=== PATIENT | female | born 1945 | race Caucasian/White ===

== ENCOUNTER 2017-01-19 16:25 | Observation (INO) ==
--- NOTE | 2017-01-19 17:06 | EKG Report ---
Stationary ECG Study [facility] ER Test Date: 01/19/2017 4:37:10 PM Pat Name: RUBNÉ HUGHES Department: Room: 286 Gender: F Supervisor Blood: : 1945 Requested by: Linden Philippe Order Number: [id number] Reading MD: QAMAR ANGEL Intervals [place] Rate: 62 P: 9 [place]: 175 QRS: -2 QRSD: 96 T: 67 QT: 413 QTc: 419 Interpretive Statements SINUS RHYTHM WITH OCCASIONAL SUPRAVENTRICULAR PREMATURE COMPLEXES SEPTAL INFARCT, AGE UNDETERMINED Electronically Signed On 01-21-17 08:51:24 CDT by QAMAR ANGEL [email or web address]
--- NOTE | 2017-01-19 17:11 | Emergency Department Note ---
Arrival - Arrival Chief Complaint: Arrhythmia/Palpitations Stated Complaint: CHEST PAINS/A-FIB ED Nursing Triage Note: Heart palpitations with SOB - pt states that she has a HX of A fib and states that she thinks that she has been in a fib today Mode of Arrival: Wheelchair Limitations: No Limitations Source: Patient Time Seen by Provider: 01/19/17 16:55 - History of Present Illness HPI Narrative: The patient complains of episodes of palpitations today consistent with her previous episodes of A. fib. This started around noon with intermittent episodes and then became more constant around 3:00. When she reached a heart rate of 90 (her maximum) she also started having some shortness of breath and later some very slight tightness in her chest. She also had a brief episode of mild nausea but no vomiting and no diaphoresis. At this point she is feeling no palpitations and feels back to normal. Date of Last Menstrual Period: hyster Allergies/Adverse Reactions: Allergies Allergy/AdvReac Type Severity Reaction Status Date / Time Cefaclor [From Ceclor] Allergy SHORTNESS Verified 01/19/17 16:27 OF BREATH Sulfa (Sulfonamide Allergy RASH Verified 01/19/17 16:27 Antibiotics) bupivacaine [From Marcaine] AdvReac Muscle Pain Verified 01/19/17 16:27 Home Medications: Home Medications Medication Instructions Recorded Confirmed Type Albuterol Sulfate [Proair 2 puff INH Q6H PRN 01/19/17 01/19/17 History Respiclick] Amiodarone Tab [Cordarone Tab] 200 mg PO DAILY 01/19/17 01/19/17 History Ascorbic Acid [Vitamin C] 1,000 mg PO BID 01/19/17 01/19/17 History Bacillus Coagulans [Probiotic] 1 each PO BEDTIME 01/19/17 01/19/17 History Calcium (Carb)/Vit D 600-400 1 tablet PO DAILY 01/19/17 01/19/17 History [Caltrate 600 + D] Cholecalciferol (Vitamin D3) 2,000 unit PO BID 01/19/17 01/19/17 History [Vitamin D3] Digoxin 250 mcg PO DAILY 01/19/17 01/19/17 History Diltiazem Cd Cap [Cardizem CD] 300 mg PO DAILY 01/19/17 01/19/17 History Docusate Sodium 100 mg PO BEDTIME 01/19/17 01/19/17 History Estradiol Tab [Estrace Tab] 1 mg PO DAILY 01/19/17 01/19/17 History Magnesium Chloride [Slow Mag] 64 mg PO DAILY 01/19/17 01/19/17 History Multivitamin (Centrum) [Centrum 1 tablet PO DAILY 01/19/17 01/19/17 History Tab] Rivaroxaban [Xarelto] 20 mg PO DAILY 01/19/17 01/19/17 History Selenium [Selenium Cap] 200 mcg PO DAILY 01/19/17 01/19/17 History Spironolactone [Aldactone] 25 mg PO DAILY 01/19/17 01/19/17 History Review of System - Review of System 12 point system: reviewed and no additional remarkable complaints except as stated - Review of System Constitutional: Present: weakness. Absent: diaphoresis, fever Eyes: Absent: vision change Head/Ears/Nose/Throat: Absent: nasal drainage Respiratory: Absent: cough, respiratory distress Cardiovascular: Present: chest pain ("Tightness"), palpitations. Absent: dyspnea on exertion, orthopnea, edema, syncope Gastrointestinal: Present: nausea. Absent: vomiting Medical,Surgical,& Family Hx - Medical History Cardio: History of: Hypertension, Cardiovascular Problems (A fib) - Surgical History Surgical History: noncontributory - Family History Family History: noncontributory - Social History Smoking Status: Never smoker Frequency of Alcohol Use: None Type of Drug Use: None Exam Physical Examination: GENERAL: Alert. No acute distress. HEENT: Normocephalic and atraumatic. There is no nasal drainage. No pharyngeal erythema or exudate. NECK: Normal inspection. Supple. No lymphadenopathy or meningismus. LUNGS: No respiratory distress. Clear to auscultation bilaterally, no wheezes, rales or rhonchi. HEART: Regular rate and rhythm. ABDOMEN: Soft, nontender and nondistended with normoactive bowel sounds. BACK: Normal inspection. SKIN: Color normal. Warm and dry. EXTREMITIES: Nontender. Normal range of motion. No pedal edema. NEUROLOGICAL/PSYCHIATRIC: Alert and oriented -3 with normal mood and affect. Cranial nerves normal. No motor or sensory deficit. Vital Signs: Vital Signs Temperature 97.1 F L 01/19/17 16:28 Pulse Rate 60 01/19/17 17:45 Respiratory Rate 16 01/19/17 17:45 Blood Pressure 155/77 01/19/17 17:45 O2 Sat by Pulse Oximetry 100 01/19/17 17:45 Course - Reevaluation(s) Reevaluation #1: The patient has been in sinus rhythm here and pretty much asymptomatic except for feeling weak. Given her symptoms of chest pain and shortness of breath with the episodes of A. fib she has had today, I think it best to put her in for observation and serial enzymes. I have discussed patient with Dr. Goetz and will admit to Dr. Roldan. Time: 17:58 Results - Labs CBC & BMP: 01/19/17 16:42 01/19/17 16:42 Lab Results: I have reviewed the patients labs Labs: Laboratory Tests 01/19/17 01/19/17 01/19/17 16:42 16:42 16:42 INR 1.0 Magnesium 2.2 Total Bilirubin 0.40 AST 20 ALT 31 Total Creatine Kinase 49 CK-MB (CK-2) < 1.0 Troponin I < 0.015 B-Natriuretic Peptide 48 - Impressions Chest x-ray shows: 1. Mild cardiomegaly 2. Mild hypoaeration changes superimposed on scarring in the left lung base EKG shows a sinus rhythm at 62 with a PAC. There are Q waves in V1 and V2. Disposition Clinical Impression: Palpitations, History of atrial fibrillation, Chest pain, Dyspnea Case discussed with: patient, patient's family Disposition: Still a Patient Condition: Stable Time of Disposition: 17:58
[2017-01-19 17:14] LABS: Basophils % 0.5 % (0.0-0.8); Eosinophils # 0.1 10*3/uL (0.0-0.87); Eosinophils % 1.4 % (0.00-10.9); Hematocrit 41.8 VOL% (35.7-47.0); Hemoglobin 14.1 GM/DL (12.0-16.0); Immature Granulocytes % 0.4 %; Immature Granulocytes Absolute 0.03 #; Lymphocytes # 2.1 10*3/uL (1.4-4.0); Lymphocytes % 28.1 % (21.3-54.2); Mean Corpuscular HGB Conc 33.7 GM/DL (32-36); Mean Corpuscular Hemoglobin 32 PG (27-34); Mean Corpuscular Volume 94.4 FL (87-102); Mean Platelet Volume 10.6 FL (9.6-12.0); Monocytes # 0.8 10*3/uL (0.11-0.8); Monocytes % 10.4 % (1.7-12.7); Neutrophils # 4.3 10*3/uL (1.4-7.4); Neutrophils % 59.2 % (38.7-73.9); Platelet Count 261 T/CUMM (130-400); Red Blood Count 4.43 MC/CUMM (3.8-5.5); Red Cell Distribution Width 12.4 % (9.3-17.3); White Blood Count 7.3 T/CUMM (4-12)
[2017-01-19 17:21] LABS: PT Patient Result 10.6 SECS; Partial Thromboplastin Time 29.2 SECS (0-40)
--- NOTE | 2017-01-19 17:38 | XRay Report ---
History is palpitations Comparison 05/03/2013 The heart is enlarged. Hilar contours are unchanged There are mild hypoaeration changes in the left lung base superimposed on previous scarring No consolidated infiltrate is seen. Impression: 1. Mild cardiomegaly 2. Mild hypoaeration changes superimposed on scarring in the left lung base PROCEDURE INTERPRETED AT [facility] DEPARTMENT OF RADIOLOGY Final Report Signed by: Dr. Arleth Torres
[2017-01-19 17:52] LABS: Alanine Aminotransferase 31 U/L (13-56); Albumin 3.9 G/DL (3.4-5.0); Alkaline Phosphatase 60 U/L (45-117); Aspartate Amino Transferase 20 U/L (0-37); Blood Urea Nitrogen 17 MG/DL (7-18); Calcium 8.9 MG/DL (8.5-10.1); Glucose 98 MG/DL (74-106); Magnesium 2.2 MG/DL (1.8-2.4); Osmolality,Calculated 284.1 MOS/KG (273-304); Potassium 4.2 MMOL/L (3.5-5.1); Sodium 142 MMOL/L (136-145); Total Protein 6.8 G/DL (6.4-8.3); Troponin I Only < 0.015 NG/ML (0.00-0.045)
[2017-01-19] MEDS ORDERED: ONDANSETRON 4 MG/2 ML VIAL IV PRN (19:26)
[2017-01-19] MEDS ORDERED: MORPHINE 2 MG/1 ML SYRINGE IV PRN (19:26)
[2017-01-19] MEDS ORDERED: MAGNESIUM SULF RIDER 4 GM in PREMIX 1 EACH IV PRN (19:26)
[2017-01-19] MEDS ORDERED: MAGNESIUM SULF RIDER 2 GM in PREMIX 1 EACH IV PRN (19:26)
[2017-01-19] MEDS ORDERED: ALBUTEROL 2.5 MG/3 ML NEB RESP TX PRN (19:26)
--- NOTE | 2017-01-20 06:53 | Cardiology History & Physical ---
Assessment and Plan (1) Paroxysmal atrial fibrillation with rapid ventricular response Status: Acute Assessment and plan: She has had a recurrent episode of atrial fib which is very rare for her. We will increase her amiodarone to 400 mg daily and have her see Dr. Roldan for follow-up. We will review a 2D echocardiogram to be certain there is been no change in her LV function. She has not had any symptoms of heart failure. Her electrolytes are within the range of normal and we will likely have her discharge later this afternoon to follow-up with Dr. Roldan Current Visit: Yes (2) Hypertension Status: Acute Current Visit: Yes (3) Chest pain Status: Acute Current Visit: Yes History of Present Illness History of present illness: Ms. Lowry is a 71 year old female who has a history of paroxysmal atrial fibrillation and hypertension. She sees Dr. Roldan it is been years since she has had atrial fibrillation. She noted onset of tachypalpitations yesterday and was on her way to the emergency room and coughed converted to sinus rhythm. She apparently was seen in [facility] in July with bronchitis and underwent stress testing at that time which apparently was negative. She has been stable since presenting here with negative isoenzymes and EKGs. She did note some chest heaviness and bilateral neck pain with her tachypalpitations. She has been on Xarelto for about a year. She denies any history of fever chills cough or sputum she has had no history of nausea vomiting diarrhea abdominal pain she has had no other real specific complaints. She now is in sinus rhythm. An echocardiogram is pending and she likely can be discharged later this afternoon. Home Medications Medication Instructions Recorded Confirmed Type Albuterol Sulfate [Proair 2 puff INH Q6H PRN 01/19/17 01/19/17 History Respiclick] Amiodarone Tab [Cordarone Tab] 200 mg PO DAILY 01/19/17 01/19/17 History Ascorbic Acid [Vitamin C] 1,000 mg PO BID 01/19/17 01/19/17 History Bacillus Coagulans [Probiotic] 1 each PO BEDTIME 01/19/17 01/19/17 History Calcium (Carb)/Vit D 600-400 1 tablet PO DAILY 01/19/17 01/19/17 History [Caltrate 600 + D] Cholecalciferol (Vitamin D3) 2,000 unit PO BID 01/19/17 01/19/17 History [Vitamin D3] Digoxin 250 mcg PO DAILY 01/19/17 01/19/17 History Diltiazem Cd Cap [Cardizem CD] 300 mg PO DAILY 01/19/17 01/19/17 History Docusate Sodium 100 mg PO BEDTIME 01/19/17 01/19/17 History Estradiol Tab [Estrace Tab] 1 mg PO DAILY 01/19/17 01/19/17 History Magnesium Chloride [Slow Mag] 64 mg PO DAILY 01/19/17 01/19/17 History Multivitamin (Centrum) [Centrum 1 tablet PO DAILY 01/19/17 01/19/17 History Tab] Rivaroxaban [Xarelto] 20 mg PO DAILY 01/19/17 01/19/17 History Selenium [Selenium Cap] 200 mcg PO DAILY 01/19/17 01/19/17 History Spironolactone [Aldactone] 25 mg PO DAILY 01/19/17 01/19/17 History Allergies Allergy/AdvReac Type Severity Reaction Status Date / Time Cefaclor [From Ceclor] Allergy SHORTNESS Verified 01/19/17 16:27 OF BREATH Sulfa (Sulfonamide Allergy RASH Verified 01/19/17 16:27 Antibiotics) bupivacaine [From Marcaine] AdvReac Muscle Pain Verified 01/19/17 16:27 Medical,Surgical,& Family Hx - Medical History Cardio: History of: Hypertension, Cardiovascular Problems (A fib) - Social History Smoking Status: Never smoker Frequency of Alcohol Use: None Type of Drug Use: None Cardiology Physical Exam - Constitutional Vitals: Vital Signs Temp Pulse Resp BP Pulse Ox 98.6 F 97 H 18 147/77 96 01/20/17 04:00 01/20/17 04:00 01/20/17 05:42 01/20/17 04:00 01/20/17 04:00 Intake and Output 01/19/17 01/19/17 01/20/17 15:59 23:59 07:59 Intake Total 500 / 500 Output Total 600 / 600 400 / 400 Balance -100 / -100 -400 / -400 Intake: Oral 500 / 500 Output: Urine 600 / 600 400 / 400 Other: Weight 100.868 kg 100.868 kg Patient Weight 01/20/17 23:59 Weight 100.868 kg Exam: Physical examination: General: The patient is awake and alert and oriented -3. Mood and affect are normal. HEENT: Normocephalic, sclera are clear there are no lid xanthelasmas noted. Oral mucosa is free of cyanosis or pallor. Neck: The neck is supple without JVD. Carotid upstrokes are normal volume and amplitude. There is no audible bruit. There is no palpable thyroid. Trachea is midline. Chest: Lungs: The patient is comfortable at rest without intercostal retractions or abdominal breathing. There are no adventitial sounds rales rubs rhonchi or wheezes noted. Cardiovascular: The PMI is nondisplaced. No palpable thrill S3 or S4. There is a regular rate and rhythm with no murmur rub or gallop noted. Dorsalis pedis posterior tibial and femoral pulses are 2+ and equal bilaterally. Abdomen: Abdomen is soft and nontender with normal active bowel sounds. There is no palpable mass or organomegaly noted. There is no midline bruit. Extremities exam: There is no cyanosis clubbing or edema. Skin: Skin is warm and dry without ecchymosis or urticaria or skin rash. There are no palpable nodules. Musculoskeletal: There is no kyphosis or scoliosis noted. Result/EKG - Labs CBC & BMP: 01/19/17 16:42 01/19/17 16:42 Labs: Laboratory Results - last 24 hr 01/19/17 01/19/17 01/19/17 16:42 16:42 16:42 WBC 7.3 RBC 4.43 Hgb 14.1 Hct 41.8 MCV 94.4 MCH 32 MCHC 33.7 RDW 12.4 Plt Count 261 MPV 10.6 Neut % (Auto) 59.2 Lymph % (Auto) 28.1 Harding % (Auto) 10.4 Eos % (Auto) 1.4 Baso % (Auto) 0.5 Neut # (Auto) 4.3 Lymph # (Auto) 2.1 [place]ing # (Auto) 0.8 Eos # (Auto) 0.1 Baso # (Auto) 0.0 Immature Gran % 0.4 Nucleated RBC % 0.0 Immature Gran # 0.03 Nucleated RBCs # 0.00 INR 1.0 PT Patient/Control Mix 10.6 Circ Anticoag PTT 29.2 Sodium 142 Potassium 4.2 Chloride 108 H Carbon Dioxide 25 Anion Gap 13.2 BUN 17 Creatinine 1.20 H GFR Calculation 56 BUN/Creatinine Ratio 14.00 Glucose 98 Calculated Osmolality 284.1 Calcium 8.9 Magnesium 2.2 Total Bilirubin 0.40 AST 20 ALT 31 Alkaline Phosphatase 60 Total Creatine Kinase 49 CK-MB (CK-2) < 1.0 Troponin I < 0.015 B-Natriuretic Peptide Total Protein 6.8 Albumin 3.9 Globulin 2.9 Albumin/Globulin Ratio 1.3 01/19/17 01/19/17 01/19/17 16:42 20:06 23:47 WBC RBC Hgb Hct MCV MCH MCHC RDW Plt Count MPV Neut % (Auto) Lymph % (Auto) [place] % (Auto) Eos % (Auto) Baso % (Auto) Neut # (Auto) Lymph # (Auto) [place] # (Auto) Eos # (Auto) Baso # (Auto) Immature Gran % Nucleated RBC % Immature Gran # Nucleated RBCs # INR PT Patient/Control Mix Circ Anticoag PTT Sodium Potassium Chloride Carbon Dioxide Anion Gap BUN Creatinine GFR Calculation BUN/Creatinine Ratio Glucose Calculated Osmolality Calcium Magnesium Total Bilirubin AST ALT Alkaline Phosphatase Total Creatine Kinase CK-MB (CK-2) Troponin I < 0.015 < 0.015 B-Natriuretic Peptide 48 Total Protein Albumin Globulin Albumin/Globulin Ratio 01/20/17 03:39 WBC RBC Hgb Hct MCV MCH MCHC RDW Plt Count MPV Neut % (Auto) Lymph % (Auto) [place] % (Auto) Eos % (Auto) Baso % (Auto) Neut # (Auto) Lymph # (Auto) [place] # (Auto) Eos # (Auto) Baso # (Auto) Immature Gran % Nucleated RBC % Immature Gran # Nucleated RBCs # INR PT Patient/Control Mix Circ Anticoag PTT Sodium Potassium Chloride Carbon Dioxide Anion Gap BUN Creatinine GFR Calculation BUN/Creatinine Ratio Glucose Calculated Osmolality Calcium Magnesium Total Bilirubin AST ALT Alkaline Phosphatase Total Creatine Kinase CK-MB (CK-2) Troponin I < 0.015 B-Natriuretic Peptide Total Protein Albumin Globulin Albumin/Globulin Ratio - EKG EKG results: interpreted by me (Sinus rhythm with nonspecific ST-T abnormalities )
--- NOTE | 2017-01-20 07:45 | EKG Report ---
Stationary ECG Study [facility] Test Date: 01/20/2017 7:45:51 AM Pat Name: RUBÉN HUGHES Department: Room: 286 Gender: F Credentials Specialist: : 1945 Requested by: Linden Philippe Order Number: [id number] Reading MD: QAMAR ANGEL Intervals [place] Rate: 58 P: 54 [place]: 201 QRS: -6 QRSD: 100 T: 66 QT: 436 QTc: 432 Interpretive Statements SINUS RHYTHM NONSPECIFIC T-WAVE ABNORMALITY Electronically Signed On 01-21-17 10:34:34 CDT by QAMAR ANGEL [email or web address]
[2017-01-20] MEDS ORDERED: RIVAROXABAN 20 MG TABLET PO SCH (09:00)
[2017-01-20] MEDS ORDERED: AMIODARONE 200 MG TABLET PO SCH (09:00)
[2017-01-20] MEDS: PANTOPRAZOLE 40 MG TABLET PO SCH (09:21)
[2017-01-20] MEDS: SPIRONOLACTONE 25 MG TABLET PO SCH (09:21)
[2017-01-20] MEDS: DILTIAZEM CD 300 MG CAPSULE PO SCH (09:21)
[2017-01-20] MEDS: AMIODARONE 200 MG TABLET PO SCH (09:22)
--- NOTE | 2017-01-20 11:38 | ECHO Report ---
Sirisha Lowry Exam Date: 01/20/2017 10:58 Referring Physician: Technologist: Age: 71 Ht (in): Wt (lb): Gender: F Exam Location: [facility] Echo Indications: BP: / HR: Rhythm: Sinus Technical Quality: Fair IMPRESSIONS Mild concentric LVH with normal left ventricular systolic wall motion and ejection fraction in the 55% range. Normal right sided dimensions Mild aortic valve sclerosis with preserved leaflet excursion 1+ tricuspid insufficiency at velocities suggesting systolic PA pressures of 42 mmHg. No pericardial effusion Aortic structures appear normal by echocardiography without evidence of aneurysm or dissection. MEASUREMENTS (Male / Female) Normal Values 2D ECHO LV Diastolic Diameter PLAX 4.6 cm 4.2 - 5.9 / 3.9 - 5.3 cm LV Systolic Diameter PLAX 3.1 cm LV Fractional Shortening PLAX 31.4 % IVS Diastolic Thickness 1.6 cm 0.6 - 1.0 / 0.6 - 0.9 cm LVPW Diastolic Thickness 1.3 cm 0.6 - 1.0 / 0.6 - 0.9 cm RV Internal Dim ED PLAX 3.1 cm Aortic Root Diameter 2.8 cm LA Systolic Diameter LX 4.2 cm 3.0 - 4.0 / 2.7 - 3.8 cm DOPPLER TR Peak Velocity 267.0 cm/s TR Peak Gradient 28.5 mmHg FINDINGS Left Ventricle Right Ventricle Right Atrium Left Atrium Mitral Valve Aortic Valve Tricuspid Valve Pulmonic Valve Pericardium Aorta Lobito Goetz MD (Electronically Signed) Final Date: 20 January 2017 11:37
[2017-01-20] MEDS ORDERED: DIGOXIN 0.25 MG TABLET PO SCH ×2 (13:00→18:00)
[2017-01-20] MEDS: RIVAROXABAN 20 MG TABLET PO SCH (18:24)
[2017-01-21] MEDS: DILTIAZEM CD 300 MG CAPSULE PO SCH (09:27)
[2017-01-21] MEDS: PANTOPRAZOLE 40 MG TABLET PO SCH (09:27)
[2017-01-21] MEDS: AMIODARONE 200 MG TABLET PO SCH (09:27)
[2017-01-21] MEDS: SPIRONOLACTONE 25 MG TABLET PO SCH (09:27)
[2017-01-21] MEDS: RIVAROXABAN 20 MG TABLET PO SCH (09:28)
--- NOTE | 2017-01-21 11:42 | Discharge Summary ---
Rafat Tolbert April RN, am scribing for, and in the presence of, Alexsandra Walker NP 11:42. Hospital Course - Hospital Course Hospital Course: General Office Dispatcher: Dr. Roldan Ms. Zabala is a 71-year-old female who is routinely followed by Dr. Roldan with a history of paroxysmal atrial fibrillation. Yesterday she had onset of palpitations and felt like she was in atrial fibrillation. On the way to the emergency room she coughed and converted to sinus rhythm. On presentation to the emergency department EKG did show that she was in sinus rhythm. She was admitted to our services for further evaluation. Echocardiogram showed ejection fraction 55%. Her vital signs were stable. Labs were all stable including troponin was negative 3. Amiodarone was increased to 400 mg daily. She is seen today sitting up in chair in no acute distress. She denies any chest pain, shortness of breath, or palpitations. track manager currently shows sinus bradycardia with heart rates in the 50s. It is felt she has reached maximum benefit from hospitalization will be discharged home. She will be discharged home her home meds she was on previously with the exception of Amiodarone which has been increased to 400 mg daily. She has an appointment to see Dr. Roldan February 06, 2017. She will keep this appointment. We will get an EKG and labs at that appointment. - Time spent with patient Time with patient DS: Less than 30 minutes Diagnosis - Discharge Diagnosis (1) Paroxysmal atrial fibrillation with rapid ventricular response Status: Resolved Specialty Discharge - Follow Up or Referrals Follow up with: Jeovanny Roldan MD [Physician] - 02/06/17 (Keep appointment patient has on February 06, EKG, BMP, mag, CBC at appointment) Discharge Plan - Discharge Data Disposition: Disch To Home/Self Care Condition at Discharge: Stable Discharge Diet: heart healthy Activity: resume usual activities as tolerated Hygiene: no restrictions Weight Bearing at Discharge: weight bear as tolerated Driving: no restrictions Contact your physician if you experience:: fever over 101, Difficulty voiding, Redness or swelling, Nausea/Vomiting, Shortness of breath, Bleeding, pain uncontrolled by pain medications - Discharge Medications New Amiodarone Tab [Cordarone Tab] 400 mg PO DAILY #30 tablet Continue Albuterol Sulfate [Proair Respiclick] 2 puff INH Q6H PRN PRN Reason: Shortness Of Breath/Wheezing Docusate Sodium 100 mg PO BEDTIME Selenium [Selenium Cap] 200 mcg PO DAILY Ascorbic Acid [Vitamin C] 1,000 mg PO BID Multivitamin (Centrum) [Centrum Tab] 1 tablet PO DAILY Estradiol Tab [Estrace Tab] 1 mg PO DAILY Diltiazem Cd Cap [Cardizem CD] 300 mg PO DAILY Cholecalciferol (Vitamin D3) [Vitamin D3] 2,000 unit PO BID Rivaroxaban [Xarelto] 20 mg PO DAILY Magnesium Chloride [Slow Mag] 64 mg PO DAILY Digoxin 250 mcg PO DAILY Bacillus Coagulans [Probiotic] 1 each PO BEDTIME Calcium (Carb)/Vit D 600-400 [Caltrate 600 + D] 1 tablet PO DAILY Spironolactone [Aldactone] 25 mg PO DAILY Discontinued Amiodarone Tab [Cordarone Tab] 200 mg PO DAILY - Follow Up or Referral Follow Up: Jeovanny Roldan MD [Physician] - 02/06/17 (Keep appointment patient has on February 06, EKG, BMP, mag, CBC at appointment) - Forms/Instructions Exam - Constitutional Vitals: Period Temp Pulse Resp BP Sys/Olsen Pulse Ox Last 24 Hr 98.0 F-98.9 F 58-74 16-20 116-150/57-79 92-96 General appearance: no acute distress, morbidly obese - Head Head exam: Absent: abrasion, hematoma - Eye Eye exam: Absent: periorbital swelling, laceration to eyelids - Respiratory Respiratory exam: Present: clear to auscultation bilaterally. Absent: accessory muscle use, chest wall tenderness - Cardiovascular Cardiovascular exam: Present: bradycardia, regular rate and rhythm. Absent: rubs - GI/Abdominal GI/Abdominal exam: Present: normal bowel sounds, soft. Absent: distended, tenderness - Extremities Exam Extremities exam: Absent: edema - Neurological Exam Neurological exam: Present: alert, oriented X3 - Psychiatric Psychiatric exam: Present: normal affect, normal mood - Skin Skin exam: Present: warm, dry Discharge Results - Imaging and Cardiology Procedure: Chest x-ray: report reviewed by me DS: Provider Expected date of discharge: 01/21/17 Aaron Tolbert Bonnie E, NP, personally performed the services described in this documentation, ascribed by Pinky Douglass RN in my presence, and it is both accurate and complete [id number] .
[2017-01-21 12:29] VITALS: BP 150/79
== END 2017-01-21 12:47 | disposition home or self-care (01) ==
LOC: N.EDINP 16:25 → N.ED 16:25 → N.EDINP 19:07 → N.TELEN 19:22
PROVIDERS: ADMIT Internal Medicine Cardiovascular Disease; ATTEND Internal Medicine Cardiovascular Disease

== ENCOUNTER 2018-01-07 15:45 | Observation (INO) ==
[2018-01-07] MEDS ORDERED: DILTIAZEM 50 MG/10 ML VIAL IV STA (16:09)
[2018-01-07 17:00] LABS: Basophils % 0.3 % (0.0-0.8); Eosinophils # 0.1 10*3/uL (0.0-0.87); Eosinophils % 0.5 % (0.00-10.9); Hematocrit 47.7 VOL% (35.7-47.0); Immature Granulocytes % 0.3 %; Immature Granulocytes Absolute 0.04 #; Lymphocytes # 1.9 10*3/uL (1.4-4.0); Lymphocytes % 15.2 % (21.3-54.2); Mean Corpuscular HGB Conc 33.5 GM/DL (32-36); Mean Corpuscular Hemoglobin 32 PG (27-34); Mean Corpuscular Volume 95.4 FL (87-102); Mean Platelet Volume 10.3 FL (9.6-12.0); Monocytes # 0.8 10*3/uL (0.11-0.8); Monocytes % 6.2 % (1.7-12.7); Neutrophils # 9.7 10*3/uL (1.4-7.4); Neutrophils % 77.5 % (38.7-73.9); Platelet Count 323 T/CUMM (130-400); White Blood Count 12.5 T/CUMM (4-12)
[2018-01-07 17:23] LABS: Alanine Aminotransferase 24 U/L (13-56); Albumin 3.8 G/DL (3.4-5.0); Alkaline Phosphatase 71 U/L (45-117); Aspartate Amino Transferase 19 U/L (0-37); Blood Urea Nitrogen 17 MG/DL (7-18); Glucose 97 MG/DL (74-106); Osmolality,Calculated 274.8 MOS/KG (273-304); Potassium 4.5 MMOL/L (3.5-5.1); Sodium 137 MMOL/L (136-145); Total Protein 7.9 G/DL (6.4-8.3); Troponin I Only < 0.015 NG/ML (0.00-0.045)
[2018-01-07] MEDS ORDERED: ONDANSETRON 4 MG/2 ML VIAL IV ONE (17:26)
[2018-01-07] MEDS ORDERED: ACETAMINOPHEN 325 MG TABLET PO PRN (18:04)
[2018-01-07] MEDS ORDERED: MAGNESIUM SULF RIDER 4 GM in PREMIX 1 EACH IV PRN (18:04)
[2018-01-07] MEDS ORDERED: ONDANSETRON 4 MG/2 ML VIAL IV PRN (18:04)
[2018-01-07] MEDS ORDERED: POTASSIUM CHLORIDE 20 MEQ TABLET PO PRN (18:04)
[2018-01-07] MEDS ORDERED: diphenhydrAMINE CAP 25 MG CAPSULE PO PRN (18:04)
[2018-01-07] MEDS ORDERED: DOCUSATE SODIUM 100 MG CAPSULE PO PRN (18:04)
[2018-01-07] MEDS ORDERED: ZALEPLON 5 MG CAPSULE PO PRN (18:04)
[2018-01-07] MEDS ORDERED: MAGNESIUM SULF RIDER 2 GM in PREMIX 1 EACH IV PRN (18:04)
[2018-01-07] MEDS ORDERED: SODIUM CHLORIDE 0.45% 500 ML IV ONE (18:08)
[2018-01-07] MEDS ORDERED: DIGOXIN 0.5 MG/2 ML AMP IV STA (18:09)
[2018-01-07] MEDS ORDERED: ALBUTEROL 2.5 MG/3 ML NEB RESP TX PRN (18:30)
[2018-01-07] MEDS ORDERED: RIVAROXABAN 20 MG TABLET PO SCH (19:30)
[2018-01-07] MEDS: CHOLECALCIFEROL 1,000 UNIT TABLET PO SCH (20:13)
[2018-01-07] MEDS: DIGOXIN 0.25 MG TABLET PO SCH (20:13)
[2018-01-07] MEDS: SODIUM CHLORIDE 0.45% 1,000 ML IV SCH (20:14)
[2018-01-07] MEDS: CALCIUM (CARBONATE)/VITAMIN D 600 MG-400 UNIT TABLET PO SCH (20:14)
[2018-01-07] MEDS: ASCORBIC ACID 500 MG TABLET PO SCH (20:14)
[2018-01-07] MEDS ORDERED: LACTOBACILLUS ACIDOPHILUS/BULGARICUS CAPLET PO SCH (21:00)
[2018-01-07] MEDS ORDERED: FAMOTIDINE 20 MG TABLET PO SCH (21:00)
[2018-01-08] MEDS: SODIUM CHLORIDE 0.45% 1,000 ML IV SCH ×2 (04:14→13:49)
[2018-01-08 06:03] LABS: Basophils % 0.2 % (0.0-0.8); Eosinophils # 0.1 10*3/uL (0.0-0.87); Eosinophils % 0.7 % (0.00-10.9); Hematocrit 43.9 VOL% (35.7-47.0); Hemoglobin 14.2 GM/DL (12.0-16.0); Immature Granulocytes % 0.3 %; Immature Granulocytes Absolute 0.03 #; Lymphocytes % 19.4 % (21.3-54.2); Mean Corpuscular HGB Conc 32.3 GM/DL (32-36); Mean Corpuscular Hemoglobin 31 PG (27-34); Mean Corpuscular Volume 96.9 FL (87-102); Mean Platelet Volume 10.8 FL (9.6-12.0); Monocytes # 0.8 10*3/uL (0.11-0.8); Monocytes % 7.7 % (1.7-12.7); Neutrophils # 7.3 10*3/uL (1.4-7.4); Neutrophils % 71.7 % (38.7-73.9); Platelet Count 294 T/CUMM (130-400); Red Blood Count 4.53 MC/CUMM (3.8-5.5); White Blood Count 10.2 T/CUMM (4-12)
[2018-01-08 06:39] LABS: Albumin 3.2 G/DL (3.4-5.0); Bilirubin,Total 1.3 MG/DL (0.2-1.0); Calcium 9.3 MG/DL (8.5-10.1); Osmolality,Calculated 280.4 MOS/KG (273-304); Potassium 4.3 MMOL/L (3.5-5.1); Total Protein 6.7 G/DL (6.4-8.3)
[2018-01-08] MEDS ORDERED: SODIUM CHLORIDE 0.9% 1,000 ML IV SCH (07:00)
[2018-01-08 07:30] LABS: Apearance,Urine CLEAR (Clear); Bacteria,Urine Occasional /HPF (Few); Bilirubin,Urine Negative (Negative); Blood, Urine Negative (Negative); Glucose,Urine (UA) Negative (Negative); Hyaline Casts,Urine 3 /LPF (0-3); Ketones,Urine Negative (Negative); Mucus,Urine Occasional /LPF (Occasional); Nitrite,Urine Negative (Negative); Protein,Urine Negative; RBC,Urine <1 /HPF (0-4); Urine Color Straw (Yellow); Urine Specific Gravity 1.004 (1.001-1.035); Urine Urobilinogen < 2.0 EU/DL (0.2-1.0); WBC,Urine 1 /HPF (0-6)
[2018-01-08] MEDS ORDERED: ESTRADIOL 1 MG TABLET PO SCH (09:00)
[2018-01-08] MEDS ORDERED: PANTOPRAZOLE 40 MG TABLET PO SCH (09:00)
[2018-01-08] MEDS ORDERED: MULTIVITAMIN (CENTRUM) TABLET PO SCH (09:00)
[2018-01-08] MEDS ORDERED: MAGNESIUM CHLORIDE 64 MG TABLET PO SCH (09:00)
[2018-01-08] MEDS ORDERED: ASPIRIN EC 81 MG TABLET PO SCH (09:00)
[2018-01-08] MEDS ORDERED: DILTIAZEM CD 300 MG CAPSULE PO SCH (09:00)
[2018-01-08] MEDS ORDERED: SELENIUM 200 MCG TABLET PO SCH (09:00)
[2018-01-08] MEDS ORDERED: MULTIVITAMIN (BEROCCA) TABLET PO SCH (09:00)
[2018-01-08] MEDS ORDERED: AMIODARONE 200 MG TABLET PO SCH (09:00)
[2018-01-08] MEDS ORDERED: PROPOFOL 200 MG/20 ML VIAL IV ONE (12:56)
[2018-01-08] MEDS ORDERED: MIDAZOLAM 2 MG/2 ML VIAL ONE (12:56)
[2018-01-08] MEDS ORDERED: fentaNYL 100 MCG/2 ML VIAL ONE (12:57)
[2018-01-08] MEDS: ASCORBIC ACID 500 MG TABLET PO SCH (13:41)
[2018-01-08] MEDS: CHOLECALCIFEROL 1,000 UNIT TABLET PO SCH (13:41)
[2018-01-08] MEDS: CALCIUM (CARBONATE)/VITAMIN D 600 MG-400 UNIT TABLET PO SCH (13:41)
[2018-01-08] MEDS: DIGOXIN 0.25 MG TABLET PO SCH (13:49)
[2018-01-08 13:52] VITALS: BP 128/64
[2018-01-08] MEDS ORDERED: DIGOXIN 0.25 MG TABLET PO SCH (18:00)
[2018-01-08] MEDS ORDERED: RIVAROXABAN 20 MG TABLET PO SCH (18:00)
[2018-01-24] MEDS ORDERED: GLUCAGON 1 MG VIAL ONE (21:56)
== END 2018-01-08 15:29 | disposition home or self-care (01) ==
LOC: EDUNIT# → EDBD → N.ED 15:45 → N.EDINP 15:45 → N.TELES 19:14
PROVIDERS: ADMIT Internal Medicine Cardiovascular Disease; ATTEND Internal Medicine Cardiovascular Disease

== ENCOUNTER 2018-12-17 14:14 | Observation (INO) ==
[2018-12-17] MEDS ORDERED: ASPIRIN 325 MG TABLET PO STA (14:55)
[2018-12-17 15:46] LABS: Basophils % 0.4 % (0.0-0.8); Eosinophils # 0.1 10*3/uL (0.0-0.87); Hemoglobin 13.5 GM/DL (12.0-16.0); Immature Granulocytes % 0.4 %; Immature Granulocytes Absolute 0.03 #; Lymphocytes # 1.7 10*3/uL (1.4-4.0); Lymphocytes % 21.4 % (21.3-54.2); Mean Corpuscular HGB Conc 32.1 GM/DL (32-36); Mean Corpuscular Volume 98.6 FL (87-102); Mean Platelet Volume 10.4 FL (9.6-12.0); Monocytes % 7.3 % (1.7-12.7); Neutrophils % 69.5 % (38.7-73.9); Platelet Count 241 T/CUMM (130-400); Red Blood Count 4.26 MC/CUMM (3.8-5.5); Red Cell Distribution Width 12.6 % (9.3-17.3); White Blood Count 7.8 T/CUMM (4-12)
[2018-12-17 16:06] LABS: Albumin 3.9 G/DL (3.4-5.0); Bilirubin,Total 0.5 MG/DL (0.2-1.0); Calcium 9.1 MG/DL (8.5-10.1); Osmolality,Calculated 285.4 MOS/KG (273-304); Total Protein 7.1 G/DL (6.4-8.3)
[2018-12-17 16:08] LABS: INR 0.9; PT Patient Result 10.3 SECS
[2018-12-17] MEDS ORDERED: ACETAMINOPHEN 325 MG TABLET PO PRN (18:00)
[2018-12-17] MEDS ORDERED: ONDANSETRON 4 MG/2 ML VIAL IV PRN (18:00)
[2018-12-17] MEDS ORDERED: LABETALOL 20 MG/4 ML SYRINGE IV PRN (18:00)
[2018-12-17 18:56] LABS: Apearance,Urine CLEAR (Clear); Bilirubin,Urine Negative (Negative); Blood, Urine Negative (Negative); Glucose,Urine (UA) Negative (Negative); Ketones,Urine Negative (Negative); Mucus,Urine Occasional /LPF (Occasional); Nitrite,Urine Negative (Negative); Protein,Urine Negative; Urine Color Yellow (Yellow); Urine Specific Gravity 1.011 (1.001-1.035); Urine Urobilinogen < 2.0 EU/DL (0.2-1.0)
[2018-12-17] MEDS ORDERED: SODIUM CHLORIDE 0.9% 1,000 ML IV SCH (20:00)
[2018-12-17] MEDS ORDERED: LIOTHYRONINE 5 MCG PO SCH (21:00)
[2018-12-17] MEDS ORDERED: Saccharomyces Boulardii [Probiotic (S.Boulardii)] 250 MG PO SCH (21:00)
[2018-12-17] MEDS ORDERED: FAMOTIDINE 20 MG TABLET PO SCH (21:00)
[2018-12-17 22:01] LABS: Barbiturates Screen,Urine Negative (Negative); Benzodiazepines Screen,Urine Negative (Negative); Cannabinoid Screen,Urine Negative (Negative); Opiate Screen,Urine Negative (Negative); Phencyclidine Screen,Urine Negative (Negative)
[2018-12-18 02:41] LABS: Basophils % 0.5 % (0.0-0.8); Eosinophils # 0.1 10*3/uL (0.0-0.87); Eosinophils % 1.7 % (0.00-10.9); Hematocrit 39.2 VOL% (35.7-47.0); Hemoglobin 12.3 GM/DL (12.0-16.0); Immature Granulocytes % 0.3 %; Immature Granulocytes Absolute 0.02 #; Lymphocytes # 2.2 10*3/uL (1.4-4.0); Lymphocytes % 34.8 % (21.3-54.2); Mean Corpuscular HGB Conc 31.4 GM/DL (32-36); Mean Platelet Volume 10.4 FL (9.6-12.0); Monocytes % 9.9 % (1.7-12.7); Neutrophils % 52.8 % (38.7-73.9); Platelet Count 235 T/CUMM (130-400); Red Blood Count 3.96 MC/CUMM (3.8-5.5); Red Cell Distribution Width 12.5 % (9.3-17.3); White Blood Count 6.4 T/CUMM (4-12)
[2018-12-18 03:13] LABS: Calcium 8.6 MG/DL (8.5-10.1); Risk Ratio 4.29; Thyroid Stimulating Hormone 0.343 uIU/ml (0.358-3.74); VLDL CHOLESTEROL 23.4 MG/DL
[2018-12-18 08:41] VITALS: BP 131/65
[2018-12-18] MEDS ORDERED: ESTRADIOL 1 MG TABLET PO SCH (09:00)
[2018-12-18] MEDS ORDERED: PANTOPRAZOLE 40 MG TABLET PO SCH (09:00)
[2018-12-18] MEDS ORDERED: ASPIRIN EC 81 MG TABLET PO SCH (09:00)
[2018-12-18] MEDS ORDERED: LIOTHYRONINE PO SCH (09:00)
[2018-12-18] MEDS ORDERED: ASPIRIN 325 MG TABLET PO SCH (09:00)
[2018-12-18] MEDS ORDERED: DILTIAZEM CD 300 MG CAPSULE PO SCH (09:00)
[2018-12-18] MEDS ORDERED: AMIODARONE 200 MG TABLET PO SCH (09:00)
[2018-12-18] MEDS ORDERED: RIVAROXABAN 20 MG TABLET PO SCH (18:00)
[2018-12-18] MEDS ORDERED: DIGOXIN 0.25 MG TABLET PO SCH (18:00)
== END 2018-12-18 10:06 | disposition home or self-care (01) ==
LOC: N.EDINP 14:14 → N.ED 14:14 → N.CC 18:50
PROVIDERS: ADMIT Internal Medicine; ATTEND Internal Medicine

== ENCOUNTER 2020-03-31 11:44 | Observation (INO) ==
[2020-03-31 12:41] LABS: Basophils % 0.4 % (0.0-0.8); Eosinophils # 0.1 10*3/uL (0.0-0.87); Hematocrit 44.2 VOL% (35.7-47.0); Hemoglobin 14.6 GM/DL (12.0-16.0); Immature Granulocytes % 0.4 %; Immature Granulocytes Absolute 0.04 #; Lymphocytes # 1.9 10*3/uL (1.4-4.0); Lymphocytes % 19.7 % (21.3-54.2); Mean Corpuscular Volume 98.2 FL (87-102); Mean Platelet Volume 10.1 FL (9.6-12.0); Monocytes % 8.3 % (1.7-12.7); Neutrophils % 70.2 % (38.7-73.9); Platelet Count 274 T/CUMM (130-400); Red Cell Distribution Width 12.3 % (9.3-17.3); White Blood Count 9.4 T/CUMM (4-12)
[2020-03-31 12:50] LABS: INR 1.2; PT Patient Result 12.6 SECS (9.8-11.9)
[2020-03-31 13:12] LABS: Albumin 3.8 G/DL (3.4-5.0); Bilirubin,Total 0.6 MG/DL (0.2-1.0); Calcium 9.4 MG/DL (8.5-10.1); Thyroid Stimulating Hormone 0.412 uIU/ml (0.358-3.74); Total Protein 7.6 G/DL (6.4-8.3)
[2020-03-31] MEDS ORDERED: LACTULOSE 20 GM/30 ML UDCUP PO PRN (14:31)
[2020-03-31] MEDS ORDERED: hydrALAZINE 20 MG/1 ML VIAL IV PRN (14:31)
[2020-03-31] MEDS ORDERED: SIMETHICONE CHEW 125 MG TABLET PO PRN (14:31)
[2020-03-31] MEDS ORDERED: ALUMINUM/MAGNES/SIMETH MAX STR 30 ML UDCUP PO PRN (14:31)
[2020-03-31] MEDS ORDERED: MORPHINE 4 MG/1 ML VIAL IV PRN (14:31)
[2020-03-31] MEDS ORDERED: ONDANSETRON 4 MG/2 ML VIAL IV PRN (14:31)
[2020-03-31] MEDS ORDERED: MAGNESIUM SULF RIDER 4 GM in PREMIX 1 EACH IV PRN (14:31)
[2020-03-31] MEDS ORDERED: MAGNESIUM SULF RIDER 2 GM in PREMIX 1 EACH IV PRN (14:31)
[2020-03-31] MEDS ORDERED: ZALEPLON 5 MG CAPSULE PO PRN (14:31)
[2020-03-31] MEDS ORDERED: ACETAMINOPHEN 325 MG TABLET PO PRN (14:31)
[2020-03-31] MEDS ORDERED: CALCIUM CARBONATE CHEW 500 MG TABLET PO PRN (14:31)
[2020-03-31] MEDS ORDERED: POTASSIUM CHLORIDE 20 MEQ TABLET PO PRN (14:31)
[2020-03-31] MEDS ORDERED: BISACODYL 5 MG TABLET PO PRN (14:31)
[2020-03-31] MEDS ORDERED: ALBUTEROL 2.5 MG/3 ML NEB RESP TX PRN (14:42)
[2020-03-31] MEDS: SODIUM CHLORIDE 0.9% 1,000 ML IV SCH (17:22)
[2020-03-31] MEDS ORDERED: RIVAROXABAN 20 MG TABLET PO SCH (18:00)
[2020-03-31] MEDS: ASCORBIC ACID 500 MG TABLET PO SCH (20:56)
[2020-03-31] MEDS: AMIODARONE 200 MG TABLET PO SCH (20:56)
[2020-03-31] MEDS: CALCIUM (CARBONATE)/VITAMIN D 600 MG-400 UNIT TABLET PO SCH (20:59)
[2020-03-31] MEDS ORDERED: LIOTHYRONINE 5 MCG PO SCH (21:00)
[2020-03-31] MEDS ORDERED: LACTOBACILLUS ACIDOPHILUS/BULGARICUS CAPLET PO SCH (21:00)
[2020-04-01 05:10] LABS: Basophils % 0.4 % (0.0-0.8); Eosinophils # 0.2 10*3/uL (0.0-0.87); Eosinophils % 2.1 % (0.00-10.9); Hematocrit 41.8 VOL% (35.7-47.0); Hemoglobin 13.5 GM/DL (12.0-16.0); Immature Granulocytes % 0.3 %; Immature Granulocytes Absolute 0.02 #; Lymphocytes # 2.1 10*3/uL (1.4-4.0); Lymphocytes % 29.3 % (21.3-54.2); Mean Corpuscular HGB Conc 32.3 GM/DL (32-36); Mean Corpuscular Volume 98.8 FL (87-102); Mean Platelet Volume 10.2 FL (9.6-12.0); Monocytes % 9.8 % (1.7-12.7); Neutrophils % 58.1 % (38.7-73.9); Platelet Count 246 T/CUMM (130-400); Red Blood Count 4.23 MC/CUMM (3.8-5.5); Red Cell Distribution Width 12.4 % (9.3-17.3); White Blood Count 7.1 T/CUMM (4-12)
[2020-04-01] MEDS: SODIUM CHLORIDE 0.9% 1,000 ML IV SCH (05:13)
[2020-04-01 05:48] LABS: Calcium 8.9 MG/DL (8.5-10.1); Osmolality,Calculated 282.3 MOS/KG (273-304)
[2020-04-01] MEDS ORDERED: MAGNESIUM CHLORIDE 64 MG TABLET PO SCH (09:00)
[2020-04-01] MEDS ORDERED: SELENIUM 200 MCG TABLET PO SCH (09:00)
[2020-04-01] MEDS ORDERED: SPIRONOLACTONE 50 MG TABLET PO SCH (09:00)
[2020-04-01] MEDS ORDERED: NON-FORMULARY MEDICATION (Biotin 5,000 MCG) PO SCH (09:00)
[2020-04-01] MEDS ORDERED: PANTOPRAZOLE 40 MG TABLET PO SCH (09:00)
[2020-04-01] MEDS ORDERED: ZINC GLUCONATE 50 MG TABLET PO SCH (09:00)
[2020-04-01] MEDS ORDERED: LIOTHYRONINE PO SCH (09:00)
[2020-04-01] MEDS ORDERED: ASPIRIN EC 81 MG TABLET PO SCH (09:00)
[2020-04-01] MEDS ORDERED: MULTIVITAMIN (CENTRUM) TABLET PO SCH (09:00)
[2020-04-01] MEDS ORDERED: DILTIAZEM CD 300 MG CAPSULE PO SCH (09:00)
[2020-04-01] MEDS ORDERED: CHOLECALCIFEROL 1,000 UNIT TABLET PO SCH (09:00)
[2020-04-01] MEDS: AMIODARONE 200 MG TABLET PO SCH (10:21)
[2020-04-01] MEDS: CALCIUM (CARBONATE)/VITAMIN D 600 MG-400 UNIT TABLET PO SCH (10:30)
[2020-04-01] MEDS: ASCORBIC ACID 500 MG TABLET PO SCH (10:31)
[2020-04-01] MEDS ORDERED: SODIUM CHLORIDE 0.9% 1,000 ML IV SCH (11:30)
[2020-04-01] MEDS ORDERED: DEXTROSE 5% NACL 0.45% 1,000 ML IV SCH (11:30)
[2020-04-01] MEDS ORDERED: PHENYLEPHRINE 1 MG/10 ML SYRINGE IV ONE (11:31)
[2020-04-01] MEDS ORDERED: propofoL 200 MG/20 ML VIAL IV ONE (11:31)
[2020-04-01 11:56] VITALS: BP 128/63
== END 2020-04-01 15:25 | disposition home or self-care (01) ==
LOC: EDBD → EDUNIT# → N.ED 11:44 → N.EDINP 11:44 → N.TELEN 16:24
PROVIDERS: ADMIT Internal Medicine Cardiovascular Disease; ATTEND Internal Medicine Cardiovascular Disease

== ENCOUNTER 2022-07-30 14:56 | Observation (INO) ==
[2022-07-30] MEDS ORDERED: ASPIRIN 325 MG TABLET PO STA (15:21)
[2022-07-30] MEDS ORDERED: DILTIAZEM 25 MG/5 ML VIAL IV STA (15:36)
[2022-07-30] MEDS ORDERED: DILTIAZEM INJ 100 MG in SODIUM CHLORIDE 0.9% 100 ML IV SCH (16:00)
[2022-07-30 16:25] LABS: Basophils % 0.3 % (0.0-0.8); Eosinophils # 0.1 10*3/uL (0.0-0.87); Eosinophils % 1.5 % (0.00-10.9); Hematocrit 42.8 VOL% (35.7-47.0); Hemoglobin 13.3 GM/DL (12.0-16.0); Immature Granulocytes % 0.3 %; Immature Granulocytes Absolute 0.02 #; Lymphocytes # 1.6 10*3/uL (1.4-4.0); Lymphocytes % 25.7 % (21.3-54.2); Mean Corpuscular HGB Conc 31.1 GM/DL (32-36); Mean Corpuscular Volume 102.9 FL (87-102); Mean Platelet Volume 10.5 FL (9.6-12.0); Monocytes # 0.6 10*3/uL (0.11-0.8); Monocytes % 9.1 % (1.7-12.7); Neutrophils % 63.1 % (38.7-73.9); Platelet Count 274 T/CUMM (130-400); Red Blood Count 4.16 MC/CUMM (3.8-5.5); Red Cell Distribution Width 12.2 % (9.3-17.3)
[2022-07-30] MEDS ORDERED: ZALEPLON 5 MG CAPSULE PO PRN (16:38)
[2022-07-30] MEDS ORDERED: MAGNESIUM SULF RIDER 4 GM/100 ML PREMIX IV PRN (16:38)
[2022-07-30] MEDS ORDERED: POTASSIUM CHLORIDE 20 MEQ TABLET PO PRN (16:38)
[2022-07-30] MEDS ORDERED: ONDANSETRON 4 MG/2 ML VIAL IV PRN (16:38)
[2022-07-30] MEDS ORDERED: MAGNESIUM SULF RIDER 2 GM/50 ML PREMIX IV PRN (16:38)
[2022-07-30] MEDS ORDERED: AMIODARONE INJ 150 MG in DEXTROSE 5% 100 ML IV ONE (16:41)
[2022-07-30] MEDS ORDERED: AMIODARONE INJ 450 MG in DEXTROSE 5% 241 ML IV SCH (17:00)
[2022-07-30 17:04] LABS: Albumin 3.9 G/DL (3.4-5.0); Bilirubin,Total 0.6 MG/DL (0.20-1.00); Calcium 9.3 MG/DL (8.5-10.1); Free T4 (Free Thyroxine) 1.35 NG/DL (0.76-1.46); Potassium 4.8 MMOL/L (3.5-5.1); Thyroid Stimulating Hormone 0.217 uIU/ml (0.358-3.74); Total Protein 6.9 G/DL (6.4-8.2)
[2022-07-30] MEDS: FUROSEMIDE 40 MG/4 ML VIAL IV SCH (17:58)
[2022-07-30] MEDS ORDERED: RIVAROXABAN 20 MG TABLET PO SCH (18:00)
[2022-07-30] MEDS: ASCORBIC ACID 500 MG TABLET PO SCH (21:18)
[2022-07-31] MEDS: AMIODARONE INJ 450 MG in DEXTROSE 5% 241 ML IV SCH ×2 (03:49→13:23)
[2022-07-31 05:32] LABS: Basophils % 0.3 % (0.0-0.8); Eosinophils # 0.2 10*3/uL (0.0-0.87); Eosinophils % 2.4 % (0.00-10.9); Hematocrit 40.7 VOL% (35.7-47.0); Hemoglobin 12.8 GM/DL (12.0-16.0); Immature Granulocytes % 0.5 %; Immature Granulocytes Absolute 0.03 #; Lymphocytes # 1.6 10*3/uL (1.4-4.0); Lymphocytes % 24.8 % (21.3-54.2); Mean Corpuscular HGB Conc 31.4 GM/DL (32-36); Mean Corpuscular Volume 102.3 FL (87-102); Mean Platelet Volume 10.6 FL (9.6-12.0); Monocytes # 0.7 10*3/uL (0.11-0.8); Monocytes % 10.6 % (1.7-12.7); Neutrophils % 61.4 % (38.7-73.9); Platelet Count 238 T/CUMM (130-400); Red Blood Count 3.98 MC/CUMM (3.8-5.5); Red Cell Distribution Width 12.2 % (9.3-17.3); White Blood Count 6.3 T/CUMM (4-12)
[2022-07-31 06:00] LABS: Osmolality,Calculated 282.5 MOS/KG (273-304); Risk Ratio 3.59; VLDL Cholesterol 13.6 MG/DL
[2022-07-31] MEDS ORDERED: traMADol 50 MG TABLET PO PRN (07:48)
[2022-07-31] MEDS ORDERED: ALBUTEROL 2.5 MG/3 ML NEB RESP TX PRN (08:08)
[2022-07-31] MEDS ORDERED: DOCUSATE SODIUM 100 MG CAPSULE PO PRN (08:12)
[2022-07-31] MEDS ORDERED: ASPIRIN EC 81 MG TABLET PO SCH (09:00)
[2022-07-31] MEDS ORDERED: BIOTIN 5000 MCG PO SCH (09:00)
[2022-07-31] MEDS ORDERED: CALCIUM (CARBONATE)/VITAMIN D 600 MG-400 UNIT TABLET PO SCH (09:00)
[2022-07-31] MEDS ORDERED: DILTIAZEM CD 300 MG CAPSULE PO SCH (09:00)
[2022-07-31] MEDS ORDERED: CHOLECALCIFEROL 1,000 UNIT TABLET PO SCH (09:00)
[2022-07-31] MEDS ORDERED: PANTOPRAZOLE 40 MG TABLET PO SCH (09:00)
[2022-07-31] MEDS ORDERED: ESTRADIOL 1 MG TABLET PO SCH (09:00)
[2022-07-31] MEDS ORDERED: MULTIVITAMIN (CENTRUM) TABLET PO SCH (09:00)
[2022-07-31] MEDS ORDERED: MAGNESIUM CHLORIDE 64 MG TABLET PO SCH (09:00)
[2022-07-31] MEDS ORDERED: ZINC GLUCONATE 50 MG TABLET PO SCH (09:00)
[2022-07-31] MEDS ORDERED: SPIRONOLACTONE 50 MG TABLET PO SCH (09:00)
[2022-07-31] MEDS: FUROSEMIDE 40 MG/4 ML VIAL IV SCH (09:52)
[2022-07-31] MEDS: ASCORBIC ACID 500 MG TABLET PO SCH (10:39)
[2022-07-31] MEDS ORDERED: propofoL 200 MG/20 ML VIAL IV ONE (11:41)
[2022-07-31] MEDS ORDERED: AMIODARONE 200 MG TABLET PO SCH ×2 (13:31→21:00)
[2022-07-31 19:09] VITALS: BP 121/64
[2022-07-31] MEDS ORDERED: BACILLUS COAGULANS CAPLET PO SCH (21:00)
[2022-07-31] MEDS ORDERED: LIOTHYRONINE 5 MCG PO SCH (21:00)
== END 2022-07-31 15:37 | disposition home or self-care (01) ==
LOC: N.ED 14:56 → N.EDINP 14:56 → N.TELEN 18:09
PROVIDERS: ADMIT Internal Medicine Cardiovascular Disease; ATTEND Internal Medicine Cardiovascular Disease

== ENCOUNTER 2022-09-04 00:54 | Inpatient (IN) ==
[2022-09-04] MEDS ORDERED: ONDANSETRON 4 MG/2 ML VIAL IV STA (01:25)
[2022-09-04] MEDS ORDERED: PANTOPRAZOLE 40 MG VIAL IV STA (01:25)
[2022-09-04] MEDS ORDERED: HYDROmorphone 1 MG/1 ML SYRINGE IV STA (01:25)
[2022-09-04] MEDS ORDERED: SODIUM CHLORIDE 0.9% 500 ML IV STA (01:25)
[2022-09-04] MEDS ORDERED: DILTIAZEM 50 MG/10 ML VIAL IV STA (01:27)
[2022-09-04] MEDS ORDERED: DILTIAZEM INJ 100 MG in SODIUM CHLORIDE 0.9% 100 ML IV SCH (01:30)
[2022-09-04 01:46] LABS: Basophils % 0.2 % (0.0-0.8); Eosinophils # 0.1 10*3/uL (0.0-0.87); Eosinophils % 0.4 % (0.00-10.9); Hematocrit 48.5 VOL% (35.7-47.0); Hemoglobin 15.9 GM/DL (12.0-16.0); Immature Granulocytes % 0.8 %; Immature Granulocytes Absolute 0.17 #; Lymphocytes # 1.1 10*3/uL (1.4-4.0); Lymphocytes % 4.9 % (21.3-54.2); Mean Corpuscular HGB Conc 32.8 GM/DL (32-36); Mean Corpuscular Volume 98.8 FL (87-102); Mean Platelet Volume 9.9 FL (9.6-12.0); Monocytes % 4.4 % (1.7-12.7); Neutrophils % 89.3 % (38.7-73.9); Platelet Count 296 T/CUMM (130-400); Red Blood Count 4.91 MC/CUMM (3.8-5.5); Red Cell Distribution Width 12.5 % (9.3-17.3); White Blood Count 22.6 T/CUMM (4-12)
[2022-09-04 01:57] LABS: Albumin 4.4 G/DL (3.4-5.0); Bilirubin,Total 0.5 MG/DL (0.20-1.00); Calcium 9.3 MG/DL (8.5-10.1); Osmolality,Calculated 280.7 MOS/KG (273-304); Potassium 4.6 MMOL/L (3.5-5.1); Total Protein 7.6 G/DL (6.4-8.2)
[2022-09-04 02:20] LABS: Lymphocytes 3 % (20-55); Platelet Estimate Adequate; Total Cells Counted 100
[2022-09-04] MEDS ORDERED: PROMETHAZINE 25 MG/1 ML VIAL ONE (02:46)
[2022-09-04] MEDS ORDERED: PROMETHAZINE 25 MG/1 ML VIAL IM STA (02:54)
[2022-09-04] MEDS ORDERED: VANCOMYCIN INJ 1,000 MG in SODIUM CHLORIDE 0.9% 250 ML IV STA (03:09)
[2022-09-04 03:22] LABS: Bacteria,Urine Occasional /HPF (Few); Hyaline Casts,Urine 8 /LPF (0-3); Mucus,Urine Few /LPF (Occasional); RBC,Urine 1 /HPF (0-4); Squamous Epithelial Cell,Urine Occasional /HPF (0-10)
[2022-09-04 03:27] LABS: Bilirubin,Urine Negative (Negative); Blood, Urine Negative (Negative); Glucose,Urine (UA) Negative (Negative); Ketones,Urine Trace mg/dL (Negative); Nitrite,Urine Negative (Negative); Protein,Urine 30 mg/dL (Negative); Urine Appearance Clear (Clear); Urine Color Yellow (Yellow); Urine Specific Gravity >= 1.030 (1.001-1.035); Urine pH 5.5 (4.5-8.0)
[2022-09-04 03:28] LABS: Urine Urobilinogen 0.2 eU/dL (<2.0)
[2022-09-04] MEDS ORDERED: ACETAMINOPHEN 325 MG TABLET PO PRN (04:06)
[2022-09-04] MEDS ORDERED: SIMETHICONE CHEW 125 MG TABLET PO PRN (04:06)
[2022-09-04] MEDS ORDERED: ONDANSETRON 4 MG/2 ML VIAL IV PRN (04:06)
[2022-09-04] MEDS ORDERED: SODIUM CHLORIDE 0.9% 1,000 ML IV SCH (04:30)
[2022-09-04] MEDS: CIPROFLOXACIN INJ 400 MG/200 ML PREMIX IV SCH ×2 (05:37→21:36)
[2022-09-04] MEDS ORDERED: METOPROLOL TARTRATE 5 MG/5 ML VIAL IV ONE (09:00)
[2022-09-04] MEDS: DOCUSATE SODIUM 100 MG CAPSULE PO SCH ×2 (10:05→21:37)
[2022-09-04] MEDS: PANTOPRAZOLE 40 MG VIAL IV SCH (10:17)
[2022-09-04] MEDS ORDERED: HYDROmorphone 1 MG/1 ML SYRINGE IV PRN (10:32)
[2022-09-04] MEDS: ENOXAPARIN 100 MG/ML SYRINGE SUBCUT SCH ×2 (12:51→21:38)
[2022-09-04] MEDS: SODIUM CHLORIDE 0.9% 1,000 ML IV SCH (12:52)
[2022-09-04] MEDS: METOPROLOL TARTRATE 5 MG/5 ML VIAL IV SCH ×2 (16:38→21:38)
[2022-09-05] MEDS: SODIUM CHLORIDE 0.9% 1,000 ML IV SCH ×2 (03:34→11:34)
[2022-09-05] MEDS: METOPROLOL TARTRATE 5 MG/5 ML VIAL IV SCH ×4 (03:35→21:55)
[2022-09-05 06:22] LABS: Basophils % 0.4 % (0.0-0.8); Eosinophils # 0.2 10*3/uL (0.0-0.87); Eosinophils % 2.5 % (0.00-10.9); Hematocrit 37.4 VOL% (35.7-47.0); Hemoglobin 11.7 GM/DL (12.0-16.0); Immature Granulocytes % 0.3 %; Immature Granulocytes Absolute 0.02 #; Lymphocytes # 1.5 10*3/uL (1.4-4.0); Mean Corpuscular HGB Conc 31.3 GM/DL (32-36); Mean Corpuscular Volume 102.7 FL (87-102); Monocytes # 0.5 10*3/uL (0.11-0.8); Monocytes % 6.3 % (1.7-12.7); Neutrophils % 71.5 % (38.7-73.9); Platelet Count 174 T/CUMM (130-400); Red Blood Count 3.64 MC/CUMM (3.8-5.5); Red Cell Distribution Width 12.8 % (9.3-17.3); White Blood Count 7.9 T/CUMM (4-12)
[2022-09-05 06:47] LABS: Calcium 7.1 MG/DL (8.5-10.1); Osmolality,Calculated 284.1 MOS/KG (273-304); Potassium 4.4 MMOL/L (3.5-5.1); Thyroid Stimulating Hormone 0.287 uIU/ml (0.358-3.74)
[2022-09-05] MEDS: ENOXAPARIN 100 MG/ML SYRINGE SUBCUT SCH ×2 (08:50→22:24)
[2022-09-05] MEDS: DOCUSATE SODIUM 100 MG CAPSULE PO SCH (08:50)
[2022-09-05] MEDS: PANTOPRAZOLE 40 MG VIAL IV SCH (08:50)
[2022-09-05] MEDS: CIPROFLOXACIN INJ 400 MG/200 ML PREMIX IV SCH ×2 (08:51→22:11)
[2022-09-05] MEDS: DEXT 5% NACL 0.45% KCL 20 MEQ 20 MEQ/1,000 ML BAG IV SCH (19:28)
[2022-09-05] MEDS: AMINO ACIDS/DEXT/LYTES 4.25-5% 1,000 ML IV SCH (19:56)
[2022-09-06] MEDS: METOPROLOL TARTRATE 5 MG/5 ML VIAL IV SCH ×4 (03:34→21:36)
[2022-09-06 05:30] LABS: Basophils % 0.2 % (0.0-0.8); Eosinophils # 0.2 10*3/uL (0.0-0.87); Eosinophils % 3.3 % (0.00-10.9); Hematocrit 37.3 VOL% (35.7-47.0); Hemoglobin 11.7 GM/DL (12.0-16.0); Immature Granulocytes % 0.3 %; Immature Granulocytes Absolute 0.02 #; Lymphocytes # 1.5 10*3/uL (1.4-4.0); Lymphocytes % 24.1 % (21.3-54.2); Mean Corpuscular HGB Conc 31.4 GM/DL (32-36); Mean Corpuscular Volume 101.6 FL (87-102); Mean Platelet Volume 10.1 FL (9.6-12.0); Monocytes # 0.6 10*3/uL (0.11-0.8); Monocytes % 9.4 % (1.7-12.7); Neutrophils % 62.7 % (38.7-73.9); Platelet Count 182 T/CUMM (130-400); Red Blood Count 3.67 MC/CUMM (3.8-5.5); Red Cell Distribution Width 12.3 % (9.3-17.3); White Blood Count 6.3 T/CUMM (4-12)
[2022-09-06 05:59] LABS: Calcium 7.6 MG/DL (8.5-10.1); Osmolality,Calculated 283.1 MOS/KG (273-304); Potassium 4.3 MMOL/L (3.5-5.1)
[2022-09-06] MEDS: CIPROFLOXACIN INJ 400 MG/200 ML PREMIX IV SCH ×2 (09:36→21:37)
[2022-09-06] MEDS: ENOXAPARIN 100 MG/ML SYRINGE SUBCUT SCH ×2 (09:37→21:36)
[2022-09-06] MEDS: PANTOPRAZOLE 40 MG VIAL IV SCH (09:38)
[2022-09-06] MEDS ORDERED: POLYETHYLENE GLYCOL POWDER 17 GM PACK PO SCH (11:30)
[2022-09-06] MEDS ORDERED: LACTULOSE 20 GM/30 ML UDCUP PO SCH (11:30)
[2022-09-06] MEDS ORDERED: DOCUSATE SODIUM 100 MG CAPSULE PO SCH (11:30)
[2022-09-06] MEDS: DEXT 5% NACL 0.45% KCL 20 MEQ 20 MEQ/1,000 ML BAG IV SCH (13:45)
[2022-09-06] MEDS: SODIUM CHLORIDE 0.9% 1,000 ML IV SCH (18:25)
[2022-09-06] MEDS: AMINO ACIDS/DEXT/LYTES 4.25-5% 1,000 ML IV SCH (21:35)
[2022-09-07] MEDS: METOPROLOL TARTRATE 5 MG/5 ML VIAL IV SCH ×4 (04:34→22:06)
[2022-09-07 05:46] LABS: Basophils % 0.5 % (0.0-0.8); Eosinophils # 0.3 10*3/uL (0.0-0.87); Eosinophils % 5.3 % (0.00-10.9); Hematocrit 36.6 VOL% (35.7-47.0); Hemoglobin 11.6 GM/DL (12.0-16.0); Immature Granulocytes % 0.3 %; Immature Granulocytes Absolute 0.02 #; Lymphocytes # 1.5 10*3/uL (1.4-4.0); Lymphocytes % 24.7 % (21.3-54.2); Mean Corpuscular HGB Conc 31.7 GM/DL (32-36); Mean Corpuscular Volume 100.8 FL (87-102); Mean Platelet Volume 10.9 FL (9.6-12.0); Monocytes # 0.7 10*3/uL (0.11-0.8); Monocytes % 11.2 % (1.7-12.7); Platelet Count 206 T/CUMM (130-400); Red Blood Count 3.63 MC/CUMM (3.8-5.5); Red Cell Distribution Width 12.2 % (9.3-17.3); White Blood Count 6.1 T/CUMM (4-12)
[2022-09-07 06:15] LABS: Calcium 7.7 MG/DL (8.5-10.1)
[2022-09-07] MEDS: DEXT 5% NACL 0.45% KCL 20 MEQ 20 MEQ/1,000 ML BAG IV SCH (06:20)
[2022-09-07] MEDS: CIPROFLOXACIN INJ 400 MG/200 ML PREMIX IV SCH (11:08)
[2022-09-07] MEDS: PANTOPRAZOLE 40 MG VIAL IV SCH (11:09)
[2022-09-07] MEDS: ENOXAPARIN 100 MG/ML SYRINGE SUBCUT SCH ×2 (11:09→22:10)
[2022-09-07] MEDS ORDERED: BISACODYL 5 MG TABLET PO PRN (12:50)
[2022-09-07] MEDS: POLYETHYLENE GLYCOL POWDER 17 GM PACK PO SCH (13:25)
[2022-09-07] MEDS ORDERED: FAT EMULSION 20% 250 ML IV SCH (14:00)
[2022-09-07] MEDS ORDERED: MULTIVITAMIN INJ 10 ML in AMINO ACIDS/DEXT/LYTES 4.25-5% 2,000 ML IV SCH (17:00)
[2022-09-08] MEDS: METOPROLOL TARTRATE 5 MG/5 ML VIAL IV SCH ×2 (04:10→08:45)
[2022-09-08 05:36] LABS: Basophils % 0.3 % (0.0-0.8); Eosinophils # 0.4 10*3/uL (0.0-0.87); Eosinophils % 6.2 % (0.00-10.9); Hematocrit 35.3 VOL% (35.7-47.0); Hemoglobin 11.5 GM/DL (12.0-16.0); Immature Granulocytes % 0.3 %; Immature Granulocytes Absolute 0.02 #; Lymphocytes # 1.5 10*3/uL (1.4-4.0); Lymphocytes % 24.8 % (21.3-54.2); Mean Corpuscular HGB Conc 32.6 GM/DL (32-36); Mean Corpuscular Volume 100.6 FL (87-102); Mean Platelet Volume 10.4 FL (9.6-12.0); Monocytes # 0.7 10*3/uL (0.11-0.8); Monocytes % 10.9 % (1.7-12.7); Neutrophils % 57.5 % (38.7-73.9); Platelet Count 197 T/CUMM (130-400); Red Blood Count 3.51 MC/CUMM (3.8-5.5); Red Cell Distribution Width 12.6 % (9.3-17.3); White Blood Count 6.1 T/CUMM (4-12)
[2022-09-08 06:09] LABS: Calcium 7.3 MG/DL (8.5-10.1); Osmolality,Calculated 276.4 MOS/KG (273-304); Phosphorous 2.1 MG/DL (2.5-4.9); Potassium 3.7 MMOL/L (3.5-5.1)
[2022-09-08] MEDS: PANTOPRAZOLE 40 MG VIAL IV SCH (08:45)
[2022-09-08] MEDS: POLYETHYLENE GLYCOL POWDER 17 GM PACK PO SCH (08:45)
[2022-09-08] MEDS ORDERED: DIGOXIN 0.125 MG TABLET PO ONE (09:09)
[2022-09-08] MEDS ORDERED: RIVAROXABAN 20 MG TABLET PO SCH (09:30)
[2022-09-08] MEDS: ENOXAPARIN 100 MG/ML SYRINGE SUBCUT SCH (10:10)
[2022-09-08 12:02] VITALS: BP 103/70
[2022-09-09] MEDS ORDERED: DIGOXIN 0.125 MG TABLET PO SCH (13:00)
== END 2022-09-08 15:18 | disposition home or self-care (01) | DRG 394 ==
LOC: EDBD → EDUNIT# → N.ED 00:54 → N.2E 04:51
PROVIDERS: ADMIT Hospitalist; ATTEND Hospitalist